=== PATIENT | male | born 1960 | race African-American/Black ===

== ENCOUNTER 2022-05-13 19:16 | Inpatient (IN) | payer MEDICAID, OTHER ==
[~2022-05-13] VITALS: Ht 182.9 cm; Wt 58.6 kg
[2022-05-13] MEDS ORDERED: ACETAMINOPHEN 325MG TABLET PO STA (19:37)
[2022-05-13] MEDS ORDERED: SODIUM CHLORIDE 0.9% 1,000 ML IV ONE (19:45)
[2022-05-13 20:03] LABS: BASOPHILS % 0.6 % (0.0-2.0); EOSINOPHILS % 3.7 % (0.0-5.0); HEMATOCRIT. 32.3 % (42.0-52.0); HEMOGLOBIN. 10.7 g/dL (14.0-18.0); LYMPHOCYTES % 18.6 % (20.0-50.0); MEAN CORPUSCULAR HEMOGLOBIN 30.3 pg (28.0-32.0); MEAN CORPUSCULAR VOLUME 91.7 fL (80.0-94.0); MEAN PLATELET VOLUME 6.6 fl (7.4-10.4); MONOCYTES % 9.3 % (2.0-8.0); NEUTROPHILS % 67.8 % (40.0-76.0); PLATELET 368 x1000/uL (130-400); RED BLOOD CELL COUNT 3.52 mill/uL (4.7-6.1); RED CELL DISTRIBUTION WIDTH 14.6 % (11.6-14.6)
[2022-05-13 20:16] LABS: CHLORIDE 95 mEq/L (98-107)
[2022-05-13] MEDS ORDERED: ACETAMINOPHEN 325MG TABLET PO SCH (21:45)
[2022-05-13] MEDS ORDERED: MAGNESIUM/ALUMINUM HYDROXIDE/SIMETHICONE 30ML UDC PO PRN (23:30)
[2022-05-13] MEDS ORDERED: GUAIFENESIN 200MG/10ML SUGAR FREE UDC PO PRN (23:30)
[2022-05-13] MEDS ORDERED: CLONIDINE 0.1MG TABLET PO PRN (23:30)
[2022-05-13] MEDS ORDERED: IPRATROPIUM/ALBUTEROL 0.5-3(2.5)MG/3ML NEB NEB PRN (23:30)
[2022-05-14] MEDS: SODIUM CHLORIDE 0.9% 1,000 ML IV SCH ×3 (00:05→20:37)
[2022-05-14] MEDS: HYDROCODONE/ACETAMINOPHEN 5/325MG TABLET PO PRN ×2 (06:20→16:09)
[2022-05-14 06:27] LABS: BASOPHILS % 0.7 % (0.0-2.0); EOSINOPHILS % 6.8 % (0.0-5.0); HEMATOCRIT. 32.1 % (42.0-52.0); HEMOGLOBIN. 10.9 g/dL (14.0-18.0); LYMPHOCYTES % 24.8 % (20.0-50.0); MEAN CORPUSCULAR HEMOGLOBIN 30.5 pg (28.0-32.0); MEAN CORPUSCULAR VOLUME 89.9 fL (80.0-94.0); MEAN PLATELET VOLUME 6.7 fl (7.4-10.4); MONOCYTES % 14.4 % (2.0-8.0); NEUTROPHILS % 53.3 % (40.0-76.0); PLATELET 434 x1000/uL (130-400); RED BLOOD CELL COUNT 3.57 mill/uL (4.7-6.1); RED CELL DISTRIBUTION WIDTH 14.4 % (11.6-14.6)
[2022-05-14 06:33] LABS: CHLORIDE 103 mEq/L (98-107)
[2022-05-14 06:39] LABS: PHOSPHORUS 2.2 mg/dL (2.5-4.9); TOTAL IRON BINDING CAPACITY 214 ug/dL (250-450)
[2022-05-14 07:03] LABS: FOLIC ACID (FOLATE) SERUM 16.1 ng/mL (>5.38)
[2022-05-14] MEDS: ENOXAPARIN 40MG/0.4ML SYR SUBCUT SCH (09:52)
[2022-05-14] MEDS ORDERED: CEFTRIAXONE 2 G PREMIX 50 ML IV SCH (11:15)
[2022-05-14] MEDS ORDERED: KETOROLAC 15MG/ML VIAL IV PRN (13:15)
[2022-05-14] MEDS ORDERED: POTASSIUM-SODIUM PHOSPHATE POWDER PACKET PO SCH (13:16)
[2022-05-14] MEDS ORDERED: MAGNESIUM 2 G PREMIX 50 ML IV NR (14:00)
[2022-05-14] MEDS ORDERED: VANCOMYCIN 1.25GM PMX (XELLIA) 250 ML IV NR (14:00)
[2022-05-14] MEDS: FLUOXETINE HCL 20MG CAPSULE PO SCH (14:02)
[2022-05-14] MEDS: CEFTRIAXONE 2 G in DEXTROSE 5% WATER 50 ML IV SCH (14:11)
[2022-05-14] MEDS ORDERED: AMPICILLIN 2,000 MG in SODIUM CHLORIDE 0.9% 100 ML IV SCH (16:00)
[2022-05-14] MEDS: ACETAMINOPHEN 325MG TABLET PO PRN (16:08)
[2022-05-14 17:30] VITALS: BP 122/47
[2022-05-14] MEDS ORDERED: NALOXONE HCL 0.4MG/ML VIAL IV PRN (17:45)
[2022-05-14 20:00] VITALS: BP 100/67
[2022-05-14] MEDS: AMPICILLIN 2,000 MG in SODIUM CHLORIDE 0.9% 100 ML IV SCH (20:37)
[2022-05-14] MEDS: VANCOMYCIN 750MG PREMIX 150 ML IV SCH (23:11)
[2022-05-14] MEDS: HYDROXYZINE 25MG TABLET PO PRN (23:11)
[2022-05-15] VITALS: BP 123/81
[2022-05-15] MEDS: CEFTRIAXONE 2 G in DEXTROSE 5% WATER 50 ML IV SCH ×3 (00:03→20:37)
[2022-05-15] MEDS: AMPICILLIN 2,000 MG in SODIUM CHLORIDE 0.9% 100 ML IV SCH ×7 (00:04→23:46)
[2022-05-15] MEDS ORDERED: VANCOMYCIN 1GM PMX (XELLIA) 200 ML IV SCH (06:00)
[2022-05-15] MEDS: SODIUM CHLORIDE 0.9% 1,000 ML IV SCH ×2 (06:00→16:00)
[2022-05-15] MEDS: VANCOMYCIN 750MG PREMIX 150 ML IV SCH ×3 (06:00→21:22)
[2022-05-15 08:00] VITALS: BP 124/73
[2022-05-15] MEDS: ENOXAPARIN 40MG/0.4ML SYR SUBCUT SCH (09:00)
[2022-05-15 12:00] VITALS: BP 100/67
[2022-05-15 12:19] LABS: HEMATOCRIT 32.3 % (42.0-52.0); MEAN CORPUSCULAR HEMOGLOBIN 30.5 pg (28.0-32.0); MEAN CORPUSCULAR VOLUME 89.6 fL (80.0-94.0); PLATELET 504 x1000/uL (130-400); RED CELL DISTRIBUTION WIDTH 14.8 % (11.6-14.6)
[2022-05-15 13:01] LABS: CHLORIDE 97 mEq/L (98-107)
[2022-05-15] MEDS: FLUOXETINE HCL 20MG CAPSULE PO SCH (14:09)
[2022-05-15 16:00] VITALS: BP 128/70
[2022-05-15] MEDS: HYDROCODONE/ACETAMINOPHEN 5/325MG TABLET PO PRN (19:55)
[2022-05-15 20:00] VITALS: BP 113/52
[2022-05-15] MEDS: HYDROXYZINE 25MG TABLET PO PRN (21:27)
[2022-05-15] MEDS: ACETAMINOPHEN 325MG TABLET PO PRN (23:53)
[2022-05-16] VITALS: BP 128/64
[2022-05-16] MEDS: SODIUM CHLORIDE 0.9% 1,000 ML IV SCH ×3 (02:01→21:28)
[2022-05-16 03:33] LABS: HEMATOCRIT 33.2 % (42.0-52.0); HEMOGLOBIN 11.1 g/dL (14.0-18.0); MEAN CORPUSCULAR HEMOGLOBIN 30.1 pg (28.0-32.0); MEAN CORPUSCULAR VOLUME 90.1 fL (80.0-94.0); PLATELET 447 x1000/uL (130-400); RED BLOOD CELL COUNT 3.69 mill/uL (4.7-6.1); RED CELL DISTRIBUTION WIDTH 14.4 % (11.6-14.6)
[2022-05-16 03:57] LABS: CHLORIDE 99 mEq/L (98-107)
[2022-05-16 04:00] VITALS: BP 128/61
[2022-05-16] MEDS: AMPICILLIN 2,000 MG in SODIUM CHLORIDE 0.9% 100 ML IV SCH ×5 (04:43→20:28)
[2022-05-16] MEDS: VANCOMYCIN 750MG PREMIX 150 ML IV SCH ×3 (05:18→22:05)
[2022-05-16 08:00] VITALS: BP 116/60
[2022-05-16] MEDS: FLUOXETINE HCL 20MG CAPSULE PO SCH (08:30)
[2022-05-16] MEDS: ENOXAPARIN 40MG/0.4ML SYR SUBCUT SCH ×2 (08:30→09:00)
[2022-05-16] MEDS: CEFTRIAXONE 2 G in DEXTROSE 5% WATER 50 ML IV SCH ×2 (08:30→21:28)
[2022-05-16 10:48] LABS: PROTHROMBIN TIME 10.9 sec (9.6-11.0)
[2022-05-16 12:00] VITALS: BP 97/70
[2022-05-16 16:00] VITALS: BP 102/60
[2022-05-16 16:11] LABS: GLUCOSE CSF 63 mg/dL (41-75)
[2022-05-16] MEDS: ACETAMINOPHEN 325MG TABLET PO PRN (16:11)
[2022-05-16 20:00] VITALS: BP 98/51
[2022-05-16] MEDS: HYDROXYZINE 25MG TABLET PO PRN (22:05)
[2022-05-17] VITALS: BP 139/77
[2022-05-17] MEDS: AMPICILLIN 2,000 MG in SODIUM CHLORIDE 0.9% 100 ML IV SCH ×6 (01:00→22:09)
[2022-05-17 04:00] VITALS: BP 105/49
[2022-05-17] MEDS: VANCOMYCIN 750MG PREMIX 150 ML IV SCH ×3 (05:48→22:09)
[2022-05-17] MEDS: ACETAMINOPHEN 325MG TABLET PO PRN ×3 (05:57→22:10)
[2022-05-17 08:00] VITALS: BP 104/43
[2022-05-17] MEDS: ENOXAPARIN 40MG/0.4ML SYR SUBCUT SCH (08:12)
[2022-05-17] MEDS: CEFTRIAXONE 2 G in DEXTROSE 5% WATER 50 ML IV SCH ×2 (08:12→22:09)
[2022-05-17] MEDS: SODIUM CHLORIDE 0.9% 1,000 ML IV SCH ×2 (08:13→18:33)
[2022-05-17] MEDS: FLUOXETINE HCL 20MG CAPSULE PO SCH (08:13)
[2022-05-17 08:30] LABS: HEMATOCRIT 29.5 % (42.0-52.0); HEMOGLOBIN 9.9 g/dL (14.0-18.0); PLATELET 504 x1000/uL (130-400); RED BLOOD CELL COUNT 3.31 mill/uL (4.7-6.1); RED CELL DISTRIBUTION WIDTH 13.9 % (11.6-14.6)
[2022-05-17 08:40] LABS: CHLORIDE 97 mEq/L (98-107)
[2022-05-17 12:00] VITALS: BP 109/65
[2022-05-17] MEDS ORDERED: POTASSIUM CHLORIDE 20MEQ/PACKET PO NR (15:45)
[2022-05-17 16:00] VITALS: BP 103/61
[2022-05-17 20:00] VITALS: BP 124/70
[2022-05-18] VITALS: BP 99/72
[2022-05-18] MEDS: AMPICILLIN 2,000 MG in SODIUM CHLORIDE 0.9% 100 ML IV SCH ×6 (00:23→21:45)
[2022-05-18 04:00] VITALS: BP 109/59
[2022-05-18] MEDS: SODIUM CHLORIDE 0.9% 1,000 ML IV SCH ×2 (04:00→14:25)
[2022-05-18] MEDS: VANCOMYCIN 750MG PREMIX 150 ML IV SCH ×3 (05:43→21:45)
[2022-05-18 06:23] LABS: CHLORIDE 98 mEq/L (98-107)
[2022-05-18 08:00] VITALS: BP 112/66
[2022-05-18] MEDS: ENOXAPARIN 40MG/0.4ML SYR SUBCUT SCH (08:34)
[2022-05-18] MEDS: FLUOXETINE HCL 20MG CAPSULE PO SCH (08:34)
[2022-05-18] MEDS: CEFTRIAXONE 2 G in DEXTROSE 5% WATER 50 ML IV SCH ×2 (10:01→21:45)
[2022-05-18 12:00] VITALS: BP 109/58
[2022-05-18 16:00] VITALS: BP 110/65
[2022-05-18] MEDS: ACETAMINOPHEN 325MG TABLET PO PRN ×2 (16:04→23:07)
[2022-05-18 20:00] VITALS: BP 124/66
[2022-05-18] MEDS: HYDROXYZINE 25MG TABLET PO PRN (23:06)
[2022-05-19] VITALS: BP 101/64
[2022-05-19] MEDS: AMPICILLIN 2,000 MG in SODIUM CHLORIDE 0.9% 100 ML IV SCH ×6 (00:16→22:27)
[2022-05-19] MEDS: SODIUM CHLORIDE 0.9% 1,000 ML IV SCH ×2 (00:17→09:01)
[2022-05-19 04:00] VITALS: BP 120/57
[2022-05-19] MEDS: VANCOMYCIN 750MG PREMIX 150 ML IV SCH ×3 (06:09→22:28)
[2022-05-19 08:00] VITALS: BP 110/53
[2022-05-19] MEDS: CEFTRIAXONE 2 G in DEXTROSE 5% WATER 50 ML IV SCH ×2 (08:59→22:28)
[2022-05-19] MEDS: FLUOXETINE HCL 20MG CAPSULE PO SCH (09:00)
[2022-05-19] MEDS: ENOXAPARIN 40MG/0.4ML SYR SUBCUT SCH (09:00)
[2022-05-19] MEDS: ACETAMINOPHEN 325MG TABLET PO PRN ×2 (09:01→13:57)
[2022-05-19 12:00] VITALS: BP 108/53
[2022-05-19] MEDS: IBUPROFEN 400MG TABLET PO PRN (15:54)
[2022-05-19 16:00] VITALS: BP 100/61
[2022-05-19 17:06] LABS: 25-HYDROXY VITAMIN D3 26 ng/mL (.)
[2022-05-19 17:08] LABS: BASOPHILS % 0.9 % (0.0-2.0); EOSINOPHILS % 6.7 % (0.0-5.0); HEMATOCRIT. 28.1 % (42.0-52.0); HEMOGLOBIN. 9.6 g/dL (14.0-18.0); MEAN CORPUSCULAR HEMOGLOBIN 30.6 pg (28.0-32.0); MEAN CORPUSCULAR VOLUME 89.2 fL (80.0-94.0); MEAN PLATELET VOLUME 7.2 fl (7.4-10.4); MONOCYTES % 13.6 % (2.0-8.0); NEUTROPHILS % 63.8 % (40.0-76.0); PLATELET 514 x1000/uL (130-400); RED BLOOD CELL COUNT 3.15 mill/uL (4.7-6.1); RED CELL DISTRIBUTION WIDTH 13.8 % (11.6-14.6)
[2022-05-19 17:12] LABS: CHLORIDE 93 mEq/L (98-107)
[2022-05-19 17:20] LABS: PHOSPHORUS 2.5 mg/dL (2.5-4.9)
[2022-05-19] MEDS ORDERED: ACETAMINOPHEN 325MG TABLET PO PRN (18:15)
[2022-05-19 20:00] VITALS: BP 97/49
[2022-05-19] MEDS ORDERED: MAGNESIUM 2 G PREMIX 50 ML IV NR (20:00)
[2022-05-19] MEDS: HYDROXYZINE 25MG TABLET PO PRN (22:32)
[2022-05-20] VITALS: BP 101/55
[2022-05-20] MEDS: ACYCLOVIR INJ 600 MG in DEXT 5% WATER 100 ML IV SCH ×4 (00:14→21:21)
[2022-05-20] MEDS: AMPICILLIN 2,000 MG in SODIUM CHLORIDE 0.9% 100 ML IV SCH ×6 (00:14→21:21)
[2022-05-20 04:00] VITALS: BP 122/56
[2022-05-20] MEDS: METHYLPREDNISOLONE SOD SUCC 40 MG/ML VIAL IV SCH ×3 (06:22→21:21)
[2022-05-20] MEDS: IBUPROFEN 400MG TABLET PO PRN (06:23)
[2022-05-20 06:28] LABS: CLARITY URINE CLEAR (CLEAR); COLOR URINE YELLOW (YELLOW); KETONES URINE NEGATIVE (NEGATIVE); LEUKOCYTE ESTERASE URINE NEGATIVE (NEGATIVE); NITRITE URINE NEGATIVE (NEGATIVE); OCCULT BLOOD URINE NEGATIVE (NEGATIVE); PROTEIN URINE 2+ (NEGATIVE); SPECIFIC GRAVITY URINE 1.012 (1.005-1.030); UROBILINOGEN URINE 0.2 E.U./dL (0.2-1.0)
[2022-05-20 06:33] LABS: CHLORIDE 93 mEq/L (98-107)
[2022-05-20 06:45] LABS: CREATINE KINASE 79 IU/L (39-308); T4 FREE 0.94 ng/dL (0.76-1.46)
[2022-05-20 06:53] LABS: BASOPHILS % 0.7 % (0.0-2.0); HEMATOCRIT. 28.5 % (42.0-52.0); HEMOGLOBIN. 9.7 g/dL (14.0-18.0); LYMPHOCYTES % 18.6 % (20.0-50.0); MEAN CORPUSCULAR HEMOGLOBIN 30.1 pg (28.0-32.0); MEAN CORPUSCULAR VOLUME 88.8 fL (80.0-94.0); MONOCYTES % 11.5 % (2.0-8.0); NEUTROPHILS % 62.2 % (40.0-76.0); PLATELET 540 x1000/uL (130-400); RED BLOOD CELL COUNT 3.21 mill/uL (4.7-6.1); RED CELL DISTRIBUTION WIDTH 13.9 % (11.6-14.6)
[2022-05-20 08:00] VITALS: BP 113/60
[2022-05-20] MEDS ORDERED: SERTRALINE HCL 50MG TABLET PO SCH (09:00)
[2022-05-20] MEDS ORDERED: FLUOXETINE HCL 20MG CAPSULE PO NR (10:30)
[2022-05-20] MEDS: HYDROXYCHLOROQUINE SULFATE 200MG TABLET PO SCH ×2 (10:34→16:46)
[2022-05-20] MEDS: ENOXAPARIN 40MG/0.4ML SYR SUBCUT SCH (10:34)
[2022-05-20] MEDS: CEFTRIAXONE 2 G in DEXTROSE 5% WATER 50 ML IV SCH ×2 (11:29→21:21)
[2022-05-20 12:00] VITALS: BP 110/62
[2022-05-20 12:50] LABS: SODIUM URINE RANDOM 34 mEq/L
[2022-05-20 20:00] VITALS: BP 104/51
[2022-05-20] MEDS: ACETAMINOPHEN 325MG TABLET PO PRN (21:22)
[2022-05-20] MEDS ORDERED: ZOLPIDEM TARTRATE 5MG TABLET PO PRN (22:30)
[2022-05-20] MEDS ORDERED: HYDROXYZINE 25MG TABLET PO PRN (22:30)
[2022-05-21] VITALS: BP 97/46
[2022-05-21] MEDS: AMPICILLIN 2,000 MG in SODIUM CHLORIDE 0.9% 100 ML IV SCH ×4 (00:17→11:16)
[2022-05-21 04:00] VITALS: BP 102/61
[2022-05-21] MEDS: ACYCLOVIR INJ 600 MG in DEXT 5% WATER 100 ML IV SCH ×2 (06:17→13:56)
[2022-05-21] MEDS: METHYLPREDNISOLONE SOD SUCC 40 MG/ML VIAL IV SCH ×2 (06:18→13:56)
[2022-05-21 07:02] LABS: HEMATOCRIT. 27.5 % (42.0-52.0); HEMOGLOBIN. 9.5 g/dL (14.0-18.0); MEAN CORPUSCULAR HEMOGLOBIN 30.4 pg (28.0-32.0); MEAN CORPUSCULAR VOLUME 88.2 fL (80.0-94.0); PLATELET 517 x1000/uL (130-400); RED BLOOD CELL COUNT 3.12 mill/uL (4.7-6.1); RED CELL DISTRIBUTION WIDTH 14.1 % (11.6-14.6)
[2022-05-21 07:20] LABS: CHLORIDE 97 mEq/L (98-107)
[2022-05-21 07:30] LABS: PHOSPHORUS 2.7 mg/dL (2.5-4.9)
[2022-05-21 07:45] LABS: ATYPICAL LYMPHOCYTES 1
[2022-05-21 07:46] LABS: PLATELET ESTIMATE INCREASED
[2022-05-21 08:00] VITALS: BP 104/50
[2022-05-21 08:10] LABS: ANTI-JO 1 ABS <0.2 AI (0.0-0.9); RNP ANTIBODY 0.2 AI (0.0-0.9)
[2022-05-21] MEDS ORDERED: FLUOXETINE HCL 20MG CAPSULE PO SCH (09:00)
[2022-05-21 09:07] LABS: ANTI-DNA DOUBLE STRANDED QUANT < 1 IU/mL (0-9); G6PD RBC 3.25 x10E6/uL (4.14-5.80)
[2022-05-21] MEDS ORDERED: IOHEXOL-300 100 ML BOTTLE ONE (09:27)
[2022-05-21] MEDS: HYDROXYCHLOROQUINE SULFATE 200MG TABLET PO SCH (10:16)
[2022-05-21] MEDS: ENOXAPARIN 40MG/0.4ML SYR SUBCUT SCH (10:20)
[2022-05-21] MEDS: CEFTRIAXONE 2 G in DEXTROSE 5% WATER 50 ML IV SCH (10:20)
[2022-05-21 12:00] VITALS: BP 107/65
[2022-05-21 17:06] LABS: G6PD QUANTITATIVE 238 (127-427)
[2022-05-22 06:21] LABS: ALDOLASE 3.6 U/L (3.3-10.3)
[2022-05-22] MEDS ORDERED: FLUO40CA8 PO (08:34)
[2022-05-22 13:06] LABS: A/G RATIO 0.6 (0.7-1.7); ALBUMIN 2.3 g/dL (2.9-4.4); ALPHA-1-GLOBULIN 0.3 g/dL (0.0-0.4); ALPHA-2-GLOBULIN 0.9 g/dL (0.4-1.0); BETA GLOBULIN 1.3 g/dL (0.7-1.3); GAMMA GLOBULINS 1.4 g/dL (0.4-1.8); GLOBULIN TOTAL 3.8 g/dL (2.2-3.9); M-SPIKE Not Observed g/dL (Not Observed); TOTAL PROTEIN SERUM 6.1 g/dL (6.0-8.5)
[2022-05-22 13:06] LABS: ANGIOTENSION CONVERTING ENZYME 63 U/L (14-82); ATYPICAL P-ANCA <1:20 titer (Neg:<1:20); CYTOPLASMIC C-ANCA <1:20 titer (Neg:<1:20); PERINUCLEAR P-ANCA <1:20 titer (Neg:<1:20)
[2022-05-22 17:06] LABS: ANTI-CARDIOLIPIN AB IGG 11 GPL U/mL (0-14); ANTI-CARDIOLIPIN AB IGM 9 MPL U/mL (0-12)
[2022-05-22 19:09] LABS: ANTI-MYELOPEROXIDASE AB < 0.2 units (0.0-0.9); ANTI-PROTEINASE 3 ABS < 0.2 units (0.0-0.9)
[2022-05-23 15:08] LABS: ANA IFA Negative (.)
== END 2022-05-21 14:47 | disposition left against medical advice (07) | DRG 720 ==
LOC: ER 19:16 → MICUSO 22:30 → EDBD 22:30 → EDBEDREQ 22:33 → EDBEDREQTM 22:33 → SUPCPDRO 22:41 → 8WST 05-14 17:19
PROVIDERS: ADMIT Internal Medicine; ATTEND Internal Medicine
PROC: 4A10X4Z Monitoring of Central Nervous Electrical Activity, External Approach (ICD-10-PCS; 2022-05-15)
PROC: 009U3ZX Drainage of Spinal Canal, Percutaneous Approach, Diagnostic (ICD-10-PCS; principal; 2022-05-16)
PROC: B01B1ZZ Fluoroscopy of Spinal Cord using Low Osmolar Contrast (ICD-10-PCS; 2022-05-16)
DX: A41.9 Sepsis, unspecified organism (principal); E46 Unspecified protein-calorie malnutrition; C85.90 Non-Hodgkin lymphoma, unspecified, unspecified site; G03.9 Meningitis, unspecified; E87.1 Hypo-osmolality and hyponatremia; G90.8 Other disorders of autonomic nervous system; F43.10 Post-traumatic stress disorder, unspecified; F32.A Depression, unspecified; D64.9 Anemia, unspecified; H93.12 Tinnitus, left ear; F17.210 Nicotine dependence, cigarettes, uncomplicated; Z20.822 Contact with and (suspected) exposure to COVID-19; R32 Unspecified urinary incontinence; Z28.310 Unvaccinated for COVID-19; Z68.1 Body mass index [BMI] 19.9 or less, adult; Z59.00 Homelessness unspecified; Z86.16 Personal history of COVID-19; Z82.3 Family history of stroke; Z84.89 Family history of other specified conditions; Z56.0 Unemployment, unspecified; Z87.898 Personal history of other specified conditions
CPT/HCPCS: 36415; 62328; 71045; 71270; 74178; 76770; 80048; 80053; 80076; 80202; 81003; 82085; 82164; 82306; 82550; 82607; 82728; 82746; 82945; 82955; 82962; 83520; 83540; 83550; 83615; 83735; 83880; 83935; 84100; 84145; 84155; 84157; 84165; 84300; 84439; 84443; 84484; 85025; 85027; 85041; 85651; 86147; 86160; 86225; 86235; 86256; 86332; 86431; 86635; 87070; 87116; 87252; 87389; 87426; 87529; 87899; 93005; 93306; 97162; 97166; 99285; C1893; J0133; J0290; J0696; J1650; J1885; J2920; J3370; J3475; J7030; J7050; J7060; Q9967

== ENCOUNTER 2022-05-21 17:23 | Emergency (ER) | payer OTHER ==
[~2022-05-21] VITALS: Ht 188 cm; Wt 64.0 kg
[2022-05-21 19:08] LABS: CHLORIDE 96 mEq/L (98-107)
[2022-05-21 19:10] LABS: HEMOGLOBIN. 9.9 g/dL (14.0-18.0); LYMPHOCYTES % 14.4 % (20.0-50.0); MEAN CORPUSCULAR HEMOGLOBIN 30.5 pg (28.0-32.0); MEAN CORPUSCULAR VOLUME 89.5 fL (80.0-94.0); MEAN PLATELET VOLUME 6.7 fl (7.4-10.4); MONOCYTES % 7.4 % (2.0-8.0); NEUTROPHILS % 77.2 % (40.0-76.0); PLATELET 593 x1000/uL (130-400); RED BLOOD CELL COUNT 3.24 mill/uL (4.7-6.1)
[2022-05-21 21:00] VITALS: BP 113/57
[2022-05-22] MEDS ORDERED: FLUO40CA8 PO (08:34)
== END 2022-05-21 21:50 | disposition home or self-care (01) ==
LOC: ER 17:23
DX: R51.9 Headache, unspecified (principal); D72.819 Decreased white blood cell count, unspecified; R53.1 Weakness
CPT/HCPCS: 36415; 80053; 85025; 93005; 99284